=== PATIENT | female | born 1980 | race Caucasian/White ===

== ENCOUNTER 2020-01-08 17:28 | Emergency (ER) | payer BC, OTHER ==
[~2020-01-08] VITALS: Ht 170.2 cm; Wt 81.8 kg
[2020-01-08] MEDS ORDERED: TRAM-42 PO (18:09)
[2020-01-08] MEDS ORDERED: PRD20T PO (18:09)
--- NOTE | 2020-01-08 18:12 | ED General ---
General Chief Complaint: Back Problems Stated Complaint: L SIDE LOWER BACK AND LEG PAIN Nursing Triage Note: Pt amb to triage with c/o L hip discomfort radiating laterally down L leg. Pt reports discomfort began at 1300 on this day. Pt denies injury, but reports she has been remodeling a house (lifting drywall). Pt denies incontinence or bladder or bowel. Pt noted to be tearful during triage. A&OX4. Nursing Sepsis Screen: No Definite Risk Source of Information: Patient Exam Limitations: No Limitations History of Present Illness Date Seen by Provider: Jan 08, 2020 Time Seen by Provider: 17:50 Initial Comments This 39-year-old woman presents to the emergency room with intense pain in the left buttock region radiating down through her thigh that started around noon. She tried taking ibuprofen and leftover Soma and hydrocodone without much relief. She has been remodeling her home and doing projects such as drywalling. She is ambulatory but limping. Allergies and Home Medications Allergies Coded Allergies: Penicillins (Verified Allergy, Unknown, 01/08/20) Home Medications Prednisone 20 Mg Tab, 40 MG PO DAILY Prescribed by: SHAYLA REESE on 01/08/20 180 Tramadol HCl 50 Mg Tablet, 50 MG PO Q4H PRN for PAIN-BREAKTHROUGH Prescribed by: SHAYLA REESE on 01/08/20 181 Patient Home Medication List Home Medication List Reviewed: Yes Review of Systems Review of Systems Constitutional: no symptoms reported EENTM: no symptoms reported Respiratory: no symptoms reported Cardiovascular: no symptoms reported Genitourinary: no symptoms reported : No Musculoskeletal: see HPI Skin: no symptoms reported Psychiatric/Neurological: No Symptoms Reported Hematologic/Lymphatic: No Symptoms Reported Immunological/Allergic: no symptoms reported Past Rxsqovn-Xtucxd-Vveyjn Hx Past Med/Social Hx: Reviewed Nursing Past Med/Soc Hx Patient Social History Alcohol Use: Denies Use Recreational Drug Use: No Smoking Status: Never a Smoker 2nd Hand Smoke Exposure: No Recent Foreign Travel: No Contact w/Someone Who Travel: No Recent Infectious Disease Expo: No Past Medical History Surgeries: Yes Gallbladder Respiratory: No Cardiac: No Neurological: No : No Female Reproductive Disorders: Polycystic Ovarian Dis Genitourinary: No Gastrointestinal: No Musculoskeletal: No Endocrine: No HEENT: No Cancer: No Integumentary: No Physical Exam Vital Signs Vital Signs - First Documented 01/08/20 17:47 Temp 36.8 Pulse 89 Resp 20 B/P (MAP) 149/95 (113) Pulse Ox 98 O2 Delivery Room Air Capillary Refill : Less Than 3 Seconds Height, Weight, BMI Height: '" Weight: lbs. oz. kg; 28.00 BMI Method: General Appearance: WD/WN, Mild Distress (crying) HEENT: PERRL/EOMI, Normal ENT Inspection, Pharynx Normal Neck: Normal Inspection Respiratory: Lungs Clear, Normal Breath Sounds, No Accessory Muscle Use Cardiovascular: Regular Rate, Rhythm, No Edema, No Murmur Back: Normal Inspection, Other (mild tenderness around the left SI joint) Extremity: Normal Inspection, Other (tenderness in the left piriformis muscle distribution. No pain with range of motion in the knee or hip) Neurologic/Psychiatric: Alert, Oriented x3, No Motor/Sensory Deficits, Normal Mood/Affect, powder nipper II-XII Norm as Tested Skin: Normal Color, Warm/Dry Progress/Results/Core Measures Suspected Sepsis Recent Fever Within 48 Hours: No Infection Criteria Present: None New/Unexplained Altered Menta: No Sepsis Screen: No Definite Risk SIRS Temperature: Pulse: 89 Respiratory Rate: 20 Blood Pressure 149 /95 Mean: 113 Results/Orders My Orders Vital Signs/I&O Capillary Refill : Less Than 3 Seconds Blood Pressure Mean: 113 Progress Note : Progress Note Patient was treated with Toradol, Norflex, prednisone, and tramadol. Departure Impression Primary Impression: Sciatic nerve pain Qualified Codes: M54.32 - Sciatica, left side Disposition: 01 HOME, SELF-CARE Condition: Improved Departure-Patient Inst. Referrals: NO,LOCAL PHYSICIAN (PCP/Family) Primary Care Physician Patient Instructions: Sciatica, Sciatica Exercises Add. Discharge Instructions: Your pain is in a sciatic distribution and could be related to a problem with your lower back or piriformis syndrome. For primary pain control use yatj-uvx-hopkdpp medications including ibuprofen up to 600 mg every 6 hours and/or Tylenol (acetaminophen) up to 1000 mg every 6 hours. For pain not controlled by qdik-oyq-ajqcsqi medications you may use Ultram (tramadol) as prescribed. Also use prednisone as prescribed to calm down inflammation. You should expect your pain to gradually improve over the next couple of days. Follow-up with your primary care provider tomorrow if not significantly improved. In the short-term avoid activities that exacerbate your pain. Return to care if you have worsening symptoms such as true leg weakness, loss of feeling in your leg and foot, bowel or bladder control problems, numbness in your groin, etc. All discharge instructions reviewed with patient and/or family. Voiced understanding. Scripts Tramadol HCl (Ultram) 50 Mg Tablet 50 MG PO Q4H PRN for PAIN-BREAKTHROUGH, #10 TAB Prov: SHAYLA OTERO MD 01/08/20 Prednisone (Prednisone) 20 Mg Tab 40 MG PO DAILY, #4 TAB 0 Refills Prov: SHAYLA OTERO MD 01/08/20 SHAYLA OTERO MD Jan 08, 2020 18:12
[2020-01-08] MEDS ORDERED: predniSONE 20 MG TAB PO ONE (18:15)
[2020-01-08] MEDS ORDERED: ORPHENADRINE 60 MG/2 ML (NORFLEX) AMP IM ONE (18:15)
[2020-01-08] MEDS ORDERED: KETOROLAC 30 MG/ML VIAL IM ONE (18:15)
[2020-01-08] MEDS ORDERED: RX-TRAMADOL 50 MG (ULTRAM) TAB PPK#4 PO STA (19:10)
[2020-01-08 19:25] VITALS: BP 130/84
== END 2020-01-08 19:25 | disposition home or self-care (01) ==
LOC: ER 17:30
DX: M54.42 Lumbago with sciatica, left side (principal); Z88.0 Allergy status to penicillin; X50.0XXA Overexertion from strenuous movement or load, initial encounter
CPT/HCPCS: 84703; 99284

== ENCOUNTER 2020-01-11 23:17 | Emergency (ER) | payer BC, OTHER ==
[~2020-01-11] VITALS: Ht 170.1 cm; Wt 81.0 kg
[~2020-01-11 23:17] MED LIST: PRD20T PO; TRAM-42 PO
--- OUTSIDE RECORDS SUMMARY | 2020-01-11 23:27 | XMS REPORT | Continuity of Care Document ---
Author Organization Unknown Address Unknown Phone Unavailable Allergies Active Description Code Type Severity Reaction Onset Reported/Identified Relationship to Patient Clinical Status Yes Penicillins [id number] Drug Aller gy Unknown N/A 01/08/2020 Medications There is no data. Problems Date Dx Coded Attending Type Code Diagnosis Diagnosed By 01/08/2020 BRANDEN MANZO, SHAYLA Ramirez Ot M54.42 LUMBAGO WITH SCIATICA, LEFT SIDE 01/08/2020 SHAYLA OTERO MD Ot M54.5 LOW BACK PAIN 01/08/2020 SHAYLA OTERO MD Ot X50.0XXA OVEREXERTION FROM STRENUOUS MOVEMENT OR 01/08/2020 SHAYLA OTERO MD Ot Z88.0 ALLERGY STATUS TO PENICILLIN 01/10/2020 SHAYLA OTERO MD Ot M54.42 LUMBAGO WITH SCIATICA, LEFT SIDE 01/10/2020 HSAYLA OTERO MD Ot M54.5 LOW BACK PAIN 01/10/2020 SHAYLA OTERO MD Ot X50.0XXA OVEREXERTION FROM STRENUOUS MOVEMENT OR 01/10/2020 SHAYLA OTERO MD Ot Z88.0 ALLERGY STATUS TO PENICILLIN Procedures There is no data. Results There is no data. Encounters ACCT No. Visit Date/Time Discharge Status Pt. Type Provider Facility Loc./Unit Complaint [id number] 01/08/2020 17:30:00 020 19:25:00 DIS Emergency BRANDEN MANZO, SHAYLA Ramirez [facility] ER L SIDE LOWER BA CK AND LEG PAIN [id number] 01/11/2020 23:22:[address] Emergency TRISTON MANZO, ANGIE Ford [facility] ER PINCHED NERVE IN BACK,PELVIC PAIN
[2020-01-11 23:30] VITALS: BP 143/85
[2020-01-12] MEDS ORDERED: ORPHENADRINE 60 MG/2 ML (NORFLEX) AMP IM ONE
[2020-01-12] MEDS ORDERED: KETOROLAC 60 MG/2 ML VIAL IM ONE
[2020-01-12] MEDS ORDERED: methylPREDNISolone 40 MG/ML (DEPO MEDROL) VIAL IM ONE
--- NOTE | 2020-01-12 00:02 | ED Back Pain ---
General Chief Complaint: General Problems/Pain Stated Complaint: PINCHED NERVE IN BACK,PELVIC PAIN Nursing Triage Note: Pt ambulates to [facility] with c/o pain in left sided groin since thursday. PT states she's tried taking tamadol, ibuprofen and prednisone without any relief. Nursing Sepsis Screen: No Definite Risk Source of Information: Patient Exam Limitations: No Limitations History of Present Illness Date Seen by Provider: Jan 11, 2020 Time Seen by Provider: 23:40 Initial Comments Patient presents ER by private conveyance with chief complaint of low back pain radiating down her left buttock. A few weeks ago she had similar pain on her right buttock and went to the chiropractor. She thinks she was compensating too much on her left side so she was doing some stretching exercises on Thursday, 3 days ago and felt a little pulled muscle in her left groin. She came to the ER and was seen by provider who diagnosed her with piriformis syndrome and sciatica. She had no significant history on K tracks. She was given tramadol and 3 days of prednisone and was getting better until she ran out of the prednisone and now today it's getting worse again. She took some ibuprofen with modest relief. She took a tramadol tonight but did not feel it helped much. She does not have any muscle relaxants. His nose history of back pain, trauma or weakness. No loss of control of bowel or bladder. No saddle anesthesia. She is having some tingling down the back side of her left leg to the level of the knee. She does not follow with a primary care provider. Allergies and Home Medications Allergies Coded Allergies: Penicillins (Verified Allergy, Unknown, 01/08/20) Home Medications Prednisone 20 Mg Tab, 40 MG PO DAILY Prescribed by: SHAYLA REESE on 01/08/201808 Tramadol HCl 50 Mg Tablet, 50 MG PO Q4H PRN for PAIN-BREAKTHROUGH Prescribed by: SHAYLA REESE on 01/08/201809 Patient Home Medication List Home Medication List Reviewed: Yes Review of Systems Constitutional: No chills, No diaphoresis EENTM: No ear discharge, No ear pain Respiratory: No cough, No phlegm, No short of breath Cardiovascular: No edema, No Hx of Intervention, No syncope Gastrointestinal: No abdominal pain, No nausea, No vomiting Musculoskeletal: see HPI, back pain, joint pain Past Omloxkf-Fsupiz-Jpzvhr Hx Patient Social History Alcohol Use: Denies Use Recreational Drug Use: No Smoking Status: Never a Smoker 2nd Hand Smoke Exposure: No Recent Foreign Travel: No Contact w/Someone Who Travel: No Recent Infectious Disease Expo: No Recent Hopitalizations: No Seasonal Allergies Seasonal Allergies: No Past Medical History Surgeries: Yes Gallbladder Respiratory: No Cardiac: No Neurological: No Female Reproductive Disorders: Polycystic Ovarian Dis Genitourinary: No Gastrointestinal: No Musculoskeletal: No Endocrine: No HEENT: No Cancer: No Integumentary: No Physical Exam Vital Signs Vital Signs - First Documented 01/11/20 23:30 Temp 37.2 Pulse 91 Resp 20 B/P (MAP) 143/85 (104) Pulse Ox 98 O2 Delivery Room Air Capillary Refill : Less Than 3 Seconds Height, Weight, BMI Height: '" Weight: lbs. oz. kg; 27.00 BMI Method: General Appearance: WD/WN, Mild Distress HEENT: PERRL/EOMI, Moist Mucous Membranes Neck: Full Range of Motion, Normal Inspection Cardiovascular: Regular Rate, Rhythm, Normal Peripheral Pulses Respiratory: No Accessory Muscle Use, No Respiratory Distress Back: Normal Inspection, No Vertebral Tenderness, Muscle Spasm (left paravertebral lumbar spine with reproducible sciatic symptoms) Extremity: Normal Capillary Refill, Normal Inspection, No Pedal Edema Neurologic/Psychiatric: Alert, Oriented x3, No Motor/Sensory Deficits, Normal Mood/Affect Progress/Results/Core Measures Results/Orders Vital Signs/I&O 01/11/20 23:30 Temp 37.2 Pulse 91 Resp 20 B/P (MAP) 143/85 (104) Pulse Ox 98 O2 Delivery Room Air Blood Pressure Mean: 104 Progress Progress Note : Time: 00:02 Progress Note Continue steroids given a shot of Toradol and Norflex. Discharge with cyclobenzaprine and instruct her to follow up with a primary care provider Departure Impression Primary Impression: Back pain Qualified Codes: M54.42 - Lumbago with sciatica, left side Disposition: 01 HOME, SELF-CARE Condition: Stable Departure-Patient Inst. Decision time for Depature: 00:00 Referrals: NO,LOCAL PHYSICIAN (PCP/Family) Primary Care Physician Patient Instructions: Ischiogluteal Bursitis Exercises, Low Back Pain (DC) Add. Discharge Instructions: Topical creams such as icy hot or Biofreeze especially with capsaicin oil can be helpful. Tylenol 1000 mg every 8 hours as needed for pain. Naproxen 1 tablet twice a day on a scheduled basis for the next 2 weeks. The steroid shot will last 5-7 days. Cyclobenzaprine 1 tablet every 8 hours as needed for muscle spasms. May cause drowsiness. Plan to follow up with a primary care doctor next week and if you're having continued symptoms discuss physical therapy. All discharge instructions reviewed with patient and/or family. Voiced understanding. Scripts Naproxen (Naprosyn) 500 Mg Tablet 500 MG PO BID, #30 TAB 0 Refills Prov: ANGIE GOLDSTEIN 01/12/20 Cyclobenzaprine HCl (Cyclobenzaprine HCl) 10 Mg Tablet 10 MG PO Q8H PRN for SPASMS, #15 TAB 0 Refills Prov: ANGIE GOLDSTEIN 01/12/20 Work/School Note: Work Release Form Date Seen in the Emergency Department: Jan 12, 2020 Return to Work: January 16, 2020 ANGIE GOLDSTEIN Jan 12, 2020 00:02
[2020-01-12] MEDS ORDERED: NAPR-1071 PO (00:07)
[2020-01-12] MEDS ORDERED: CYCL10TA9 PO (00:07)
== END 2020-01-12 00:11 | disposition home or self-care (01) ==
LOC: EDUNIT# 23:17 → ER 23:22
DX: M54.5 Low back pain (principal); Z88.0 Allergy status to penicillin
CPT/HCPCS: 99284